=== PATIENT | female | born 1945 | race Caucasian/White ===

== ENCOUNTER 2023-04-30 23:21 | Inpatient (IN) | payer MEDICARE ==
[~2023-04-30] VITALS: Ht 162.6 cm; Wt 95.4 kg
[~2023-04-30 23:21] MED LIST: ATOR20TA PO; DILT120T20 PO; FLUT1BLS4 PO; GABA300C PO; INSU100V49 SQ; INSU100V9 SQ; LISI2.5T14 PO; NORT50CA5 PO; RIVA20TA PO
[2023-05-01] VITALS (10 sets, daily range): PULSE 100–119; RESP 15–20; O2SAT 90–93
[2023-05-01 00:45] LABS: D-DIMER 0.73 MG/L FEU (0-0.50)
[2023-05-01 00:49] LABS: ALANINE AMINOTRANSFERASE 23 U/L (12-78); ALBUMIN 2.6 G/DL (3.4-5.0); ALBUMIN/GLOBULIN RATIO 0.7 (1.1-1.5); ALKALINE PHOSPHATASE 61 IU/L (46-116); ANION GAP 11 (8-16); ASPARTATE AMINO TRANSFERASE 13 U/L (10-37); BILIRUBIN,TOTAL 0.9 MG/DL (0.1-1.0); BLOOD UREA NITROGEN 74 MG/DL (7-18); BUN/CREATININE RATIO 24.7 (10.0-20.0); CALCIUM 8.4 MG/DL (8.5-10.1); CHLORIDE 95 MMOL/L (99-107); CREATININE 2.99 MG/DL (0.40-0.90); GLUCOSE 324 MG/DL (70-104); POTASSIUM 4.3 MMOL/L (3.5-5.1); SODIUM 130 MMOL/L (135-145); TOTAL CARBON DIOXIDE 23.7 MMOL/L (24-32); TOTAL PROTEIN 6.5 G/DL (6.4-8.2); eGFR 15 ML/MIN
[2023-05-01 01:01] LABS: BASOPHILS # (AUTO) 0.1 X10'3 (0-0.2); BASOPHILS % (AUTO) 0.4 % (0-1); EOSINOPHILS % (AUTO) 0.2 % (0-6); HEMATOCRIT 37.6 % (35.0-45.0); HEMOGLOBIN 12.5 g/dl (12.0-16.0); LYMPHOCYTES # (AUTO) 2.5 X10'3 (1.1-4.8); LYMPHOCYTES % (AUTO) 10.9 % (21-51); MEAN CORPUSCULAR HEMOGLOBIN 30.1 PG (27.0-31.0); MEAN CORPUSCULAR HGB CONC 33.2 g/dL (33.0-36.5); MEAN CORPUSCULAR VOLUME 90.7 FL (78-98); MEAN PLATELET VOLUME 8.8 FL (7.4-10.4); MONOCYTES # (AUTO) 0.8 X10'3 (0-0.9); MONOCYTES % (AUTO) 3.5 % (2-12); NEUTROPHILS # (AUTO) 19.3 X10'3 (1.8-7.7); PLATELET COUNT 279 X10'3 (140-440); RED BLOOD COUNT 4.15 X10'6 (4.20-5.60); WHITE BLOOD COUNT 22.7 X10'3 (4.5-11.0)
--- NOTE | 2023-05-01 01:29 | NUR ---
unable to confirm placement of PICC line for use. PIV inserted into left AC.
[2023-05-01] MEDS ORDERED: normal saline 1000ML IV soln IVB ONE ×2 (03:10→03:55)
[2023-05-01] MEDS ORDERED: CefTRIAXone/D5W-Rocephin 1gm 50 ML IV ONE (03:55)
[2023-05-01] MEDS ORDERED: azithromycin/NS 500mg/250ml 250 ML IV ONE (03:55)
[2023-05-01] MEDS ORDERED: acetaminophen 650mg rectal suppository RC PRN (04:50)
[2023-05-01] MEDS ORDERED: diphenhydrAMINE 50 mg/ml inj IV PRN (04:50)
[2023-05-01] MEDS ORDERED: mag hydrox/Alum hydrox/simeth 30ml oral suspension PO PRN (04:50)
[2023-05-01] MEDS ORDERED: morphine 2 MG/ML inj. syringe IV PRN (04:50)
[2023-05-01] MEDS ORDERED: diphenhydrAMINE 25mg capsule PO PRN (04:50)
[2023-05-01] MEDS ORDERED: ondansetron/PF 4mg/2ml inj IV PRN (04:50)
[2023-05-01] MEDS ORDERED: ondansetron 4mg rapidly disintigrating tab PO PRN (04:50)
[2023-05-01] MEDS: normal saline 1000ml 1,000 ML IV SCH ×2 (04:50→17:52)
[2023-05-01] MEDS ORDERED: magnesium hydroxide 30ml (MOM) UD suspension PO PRN (04:50)
[2023-05-01] MEDS ORDERED: acetaminophen 325mg tablet PO PRN ×2 (04:50)
[2023-05-01] MEDS ORDERED: bisacodyl 10mg suppository rectal RC PRN (04:50)
[2023-05-01] MEDS ORDERED: DEXTROSE 15 GM of carb/4 tabs (each vial/BOTTLE has 4 tablets) PO PRN ×2 (04:55)
[2023-05-01] MEDS ORDERED: albumin (human) 25% 100ml IV 100 ML in dextrose 5% water 500ml 400 ML IV ONE (04:55)
[2023-05-01] MEDS ORDERED: MESSAGE TO PHARMACY PO ONE (04:55)
[2023-05-01] MEDS ORDERED: dextrose 50%-water 50ml dispensing syringe IV PRN ×2 (04:55)
[2023-05-01] MEDS ORDERED: glucagon, human recombinant 1mg kit SUBCUT PRN (04:55)
[2023-05-01 05:16] LABS: ABG BASE EXCESS -4.9 mmol/L (-2.0-2.0); ABG HCO3 19.9 mmol/L (22.0-26.0); ABG PCO2 (T) 35.7 mmHg (32.0-45.0); ABG PO2 (T) 63.6 mmHg (75.0-100.0); ALLEN'S TEST Modified; FCOHb 0.4 % (0.0-3.9); FLOW 6 L/min; FMetHb 0.3 % (0.0-1.5); FO2Hb 89.4 % (94-97); PATIENT TEMPERATURE 36.8; TOTAL HEMOGLOBIN 12.7 G/dl (12.0-16.0)
[2023-05-01 05:45] LABS: MAGNESIUM 1.6 MG/DL (1.5-2.4); PHOSPHORUS 6.1 MG/DL (2.3-4.5)
[2023-05-01] MEDS ORDERED: morphine 2 MG/ML inj. syringe IV ONE (05:50)
[2023-05-01] MEDS ORDERED: LORazepam 2 mg/ml vial IV ONE (05:50)
[2023-05-01 06:28] LABS: APTT 46 SECONDS (22-32); D-DIMER 0.54 MG/L FEU (0-0.50)
--- NOTE | 2023-05-01 07:18 | NUR ---
RN CALLED PHARM AND REQ ALBUMIN. PER PHARMACIST RN/TECH WILL NEED TO BOOM CAT OPERATOR FROM PHARM.
[2023-05-01] MEDS ORDERED: albumin (human) 25% 100ml IV 500 ML IV ONE (07:25)
[2023-05-01] MEDS ORDERED: vancomycin/NS 1 GM ADD-VANTAGE 250 ML IV SCH (08:00)
[2023-05-01] MEDS ORDERED: vancomycin/NS 1 GM ADD-VANTAGE 250 ML IV PRN (08:25)
[2023-05-01] MEDS ORDERED: vancomycin/NS 1 GM ADD-VANTAGE 250 ML IV ONE (08:26)
[2023-05-01] MEDS: pantoprazole 40mg Tablet.DR PO SCH (08:27)
[2023-05-01] MEDS: methylPREDNISolone sod succ 125mg/2ml vial IV SCH ×2 (08:27→12:04)
[2023-05-01] MEDS: HYDROcodone/acetaminophen 5mg/325mg tablet PO PRN (08:27)
--- NOTE | 2023-05-01 08:57 | NUR ---
RN PAGED RT TO GIVE RT TX JOHN.
[2023-05-01] MEDS ORDERED: NYSPWD TP (08:58)
[2023-05-01] MEDS ORDERED: FURO-149 PO (08:58)
[2023-05-01] MEDS ORDERED: HYDR-3964 PO (08:58)
[2023-05-01] MEDS ORDERED: CARB15DR58 RIGHTEYE (08:58)
[2023-05-01] MEDS ORDERED: ALBU2.5V10 INH (08:58)
[2023-05-01] MEDS: ipratropium/albuterol 3ml nebule NEB PRN ×3 (09:12→23:44)
--- NOTE | 2023-05-01 09:16 | NUR ---
RN NOTIFIED DR MILNER PT HR IN 120'S AFIB WITH RVR. PT TAKES DILTIAZEM 120MG ER DAILY. PER DR GUAN RN MAY ORD 30MG DILTIAZEM PO Q6HRS AND ADMIN. ALSO FOR RN TO CALL HER BACK IF PT HR DOES NOT IMPROVE.
--- NOTE | 2023-05-01 09:21 | NUR ---
RN ATTEMPTING 2ND IV NOW. BG BEING CHECKED BY HVAC MANAGER/STUDENT.
--- NOTE | 2023-05-01 09:25 | NUR ---
DILTIAZEM WAS THROWN IN TRASH BY STAFF IN ERROR. RN WILL OBTAIN NEW DILTIAZEM TABLET FROM [employer].
[2023-05-01] MEDS: diltiazem 30mg tablet PO SCH ×2 (09:26→15:35)
[2023-05-01] MEDS: docusate sod 100mg capsule PO SCH (09:41)
[2023-05-01 09:48] LABS: CLARITY,URINE SLIGHTLY CLOUDY (Clear); COLOR,URINE YELLOW (Yellow); GLUCOSE, URINE NEGATIVE (Neg); KETONES,URINE TRACE mg/dl (Neg); LEUKOCYTE ESTERASE ,URINE NEGATIVE (Neg); NITRITES, URINE NEGATIVE (Neg); OCCULT BLOOD,URINE NEGATIVE (Neg); PROTEIN,URINE NEGATIVE (Neg); UROBILINOGEN,URINE 0.2 E.U/dL (0.2-1.0)
[2023-05-01 09:50] LABS: UA COLLECTION TYPE FOLEY CATH
[2023-05-01 09:58] LABS: SQUAMOUS EPITHELIAL CELL,UR MANY /LPF (FEW)
[2023-05-01 09:59] LABS: MUCUS STRANDS FEW /LPF (Neg)
[2023-05-01 10:03] LABS: CAL OXALATE CRYSTALS FEW /HPF (NEGATIVE)
[2023-05-01 10:04] LABS: BACTERIA,URINE FEW /HPF (Neg); RBC,URINE 0-2 /HPF (0-2); WBC,URINE 0-4 /HPF (0-4)
--- NOTE | 2023-05-01 10:08 | NUR ---
PT HAS PICC TO RUE. NO NEED FOR RN TO PLACE 2ND IV.
--- NOTE | 2023-05-01 11:53 | NUR ---
RN DID NOT ADMIN INSULIN WITH AM BG CK D/T PT WANTED TO EAT YOGURT AND CRACKERS. PT ATE YOGURT VERY SLOWLY AND DID NOT EAT CRACKERS. PT JUST FINISHED YOGURT SO NUTRITIONAL DOSE COULD NOT BE DETERMINED UNTIL THIS TIME. LUNCH WILL ARRIVE SOON AND RN WILL ADMIN INSULIN AT THAT TIME.
--- NOTE | 2023-05-01 11:56 | NUR ---
PT C/O INCREASED SOB AND REQ ANOTHER RT TX. RT TX ORD Q 6HRS. PT ALSO ASKING FOR MORE MORPHINE OR NORCO FOR CP AND BOTH ARE NOT DUE FOR 1 HR IF GIVEN 30 MINS EARLY. RN PAGED DR GUAN TO NOTIFY HER AND REQ ORDS.
--- NOTE | 2023-05-01 14:02 | NUR ---
RN REQ HUMALOG AND LANTUS FROM PHARM. PER PHARM RN WILL NEED TO PRODUCTION OR PLANT ENGINEER IN 10 MINS.
[2023-05-01] MEDS: insulin Lispro (HumaLOG) vial - multi-dose SQ SCH ×2 (14:30→19:34)
--- NOTE | 2023-05-01 14:53 | NUR ---
RT PAGED SO HIGH FLOW NASAL CANULA CAN BE PROVIDED AND RT TX. RN WILL ALSO REQ HUMIDIFIER.
--- NOTE | 2023-05-01 15:04 | NUR ---
RT AT PT BEDSIDE. PER RT THEY WILL PUT THE PT ON A SIMPLE MASK BUT THEY DO NOT WANT TO PROVIDE A HFNC/HUMIDIFIER D/T WHEN THEY BRING IT TO THE ED THE SUPPLIES ARE LOST. RN REQ HFNC D/T PT WILL NOT BE ABLE TO EAT WITH A SIMPLE MASK ON AND D/T PT ACUITY IN THE ED RN CAN NOT OBSERVE THE PT EATING WITH A MASK. INTERACTIVE MEDIA MARKETING STRATEGIST [employer] NOTIFIED AND CAME TO BEDSIDE TO CONFIRM WITH RN. PER RT THEY WILL PROVIDE A HFNC BUT THEY WILL NOT PROVIDE A HUMIDIFIER. RN WILL CONT TO MONITOR PT FOR COMFORT WITH HFNC.
[2023-05-01] MEDS: CefTRIAXone/D5W-Rocephin 1gm 50 ML IV SCH (17:52)
--- NOTE | 2023-05-01 19:10 | NUR ---
. ENAMORADO IN PLACE TO GRAVITY, REC'D PT IN POC IN NAD IN HOSPITAL BED, PENDING ADMIT. PT C/O HFNC TOO HIGH AT 10L AND BOTHERING HER; NOTICED NO HUMIDIFIER IN PLACE, RT PAGED, HUMIDIFIER PLACED, AND FLOW CHANGED TO 8L
--- NOTE | 2023-05-01 19:17 | NUR ---
PT HAS WOUND TO LEFT UPPER ABD. WOUND CARE CONSULT ORD AND PIC PLACED IN CHART.
[2023-05-01] MEDS ORDERED: temazepam 15mg capsule PO PRN (21:00)
[2023-05-01] MEDS: insulin glargine (Lantus) pen - multi-dose SQ SCH (21:00)
[2023-05-02] VITALS (9 sets, daily range): BP systolic 142–163; BP diastolic 66–77; PULSE 63–102; RESP 16–20; TEMP 97.2–98.6; O2SAT 89–92
[2023-05-02] MEDS: normal saline 1000ml 1,000 ML IV SCH ×3 (00:50→18:01)
[2023-05-02] MEDS: docusate sod 100mg capsule PO SCH ×3 (00:52→20:19)
[2023-05-02] MEDS: diltiazem 30mg tablet PO SCH ×5 (00:52→20:19)
[2023-05-02] MEDS: methylPREDNISolone sod succ 125mg/2ml vial IV SCH ×4 (01:03→20:19)
[2023-05-02] MEDS ORDERED: VANCOMYCIN LEVEL IV SCH (03:00)
--- NOTE | 2023-05-02 08:00 | NUR ---
Patient in room PCU 3020. [facility] and had the opportunity to ask questions and assume patient care.
[2023-05-02 08:38] LABS: BASOPHILS # (AUTO) 0.1 X10'3 (0-0.2); BASOPHILS % (AUTO) 0.3 % (0-1); EOSINOPHILS % (AUTO) 0 % (0-6); HEMATOCRIT 30.1 % (35.0-45.0); HEMOGLOBIN 9.7 g/dl (12.0-16.0); LYMPHOCYTES # (AUTO) 0.3 X10'3 (1.1-4.8); LYMPHOCYTES % (AUTO) 0.9 % (21-51); MEAN CORPUSCULAR HGB CONC 32.4 g/dL (33.0-36.5); MEAN CORPUSCULAR VOLUME 92.6 FL (78-98); MONOCYTES # (AUTO) 0.4 X10'3 (0-0.9); MONOCYTES % (AUTO) 1.2 % (2-12); NEUTROPHILS # (AUTO) 31.6 X10'3 (1.8-7.7); NEUTROPHILS % (AUTO) 97.6 % (42-75); PLATELET COUNT 219 X10'3 (140-440); RED BLOOD COUNT 3.25 X10'6 (4.20-5.60); RED CELL DISTRIBUTION WIDTH 14.3 % (11.5-14.5)
[2023-05-02 08:45] LABS: WHITE BLOOD COUNT 32.4 X10'3 (4.5-11.0)
[2023-05-02] MEDS: pantoprazole 40mg Tablet.DR PO SCH (08:49)
[2023-05-02] MEDS: CefTRIAXone/D5W-Rocephin 1gm 50 ML IV SCH (08:50)
[2023-05-02 08:54] LABS: ALANINE AMINOTRANSFERASE 15 U/L (12-78); ALBUMIN 2.1 G/DL (3.4-5.0); ALBUMIN/GLOBULIN RATIO 0.6 (1.1-1.5); ALKALINE PHOSPHATASE 59 IU/L (46-116); ANION GAP 11 (8-16); ASPARTATE AMINO TRANSFERASE 8 U/L (10-37); BILIRUBIN,TOTAL 0.4 MG/DL (0.1-1.0); BLOOD UREA NITROGEN 64 MG/DL (7-18); BUN/CREATININE RATIO 26.1 (10.0-20.0); CALCIUM 7.9 MG/DL (8.5-10.1); CHLORIDE 103 MMOL/L (99-107); CREATININE 2.45 MG/DL (0.40-0.90); GLUCOSE 301 MG/DL (70-104); POTASSIUM 4.4 MMOL/L (3.5-5.1); SODIUM 136 MMOL/L (135-145); TOTAL CARBON DIOXIDE 22.1 MMOL/L (24-32); TOTAL PROTEIN 5.7 G/DL (6.4-8.2); VANCOMYCIN,RANDOM 23.6 UG/ML; eGFR 19 ML/MIN
[2023-05-02 09:11] LABS: HYPERSEGMENTED NEUTROPHILS 1+; TOTAL CELLS COUNTED 100
[2023-05-02 09:12] LABS: PLATELET ESTIMATE NORMAL
[2023-05-02 09:13] LABS: BURR CELLS 1+; TARGET CELLS FEW
[2023-05-02] MEDS: insulin Lispro (HumaLOG) vial - multi-dose SQ SCH ×4 (09:51→21:18)
[2023-05-02] MEDS: cefepime 2g/NS 100ml ADVANTAGE 100 ML IV SCH (13:10)
--- NOTE | 2023-05-02 14:15 | NUR ---
PRESSURE ULCER EDUCATION: DEFINITION: A pressure ulcer is an area of skin that breaks down when you stay in one position too long. The constant pressure against the skin reduces the blood flow to that area and the affected tissue dies. CAUSES: "Being bedridden or in a wheelchair "Fragile skin "Having a chronic condition, such as diabetes or vascular disease "Inability to move certain parts of your body without assistance "Older age "Incontinence of urine or stool SYMPTOMS: "A reddened area that DOES NOT turn white when pressed on - this can be the beginning of a pressure ulcer "A blister, deep sore or a crater - these can be advanced pressure ulcers FIRST AID: "Relieve the pressure on this area "Keep the area clean and dry "Call your primary doctor if you see any of the above symptoms "DO NOT massage the area "DO NOT use a donut shaped or ring shaped pillow- these actually interfere with the blood flow and cause complications PREVENTION: "Check for pressure ulcers everyday "Change position at least every two hours to relieve pressure "Use items that help relieve pressure- pillows, sheepskin, foam padding, and powders. "Keep skin clean and dry "Eat healthy well balanced meals "Exercise daily IF YOU SEE ANY OF THESE SYMPTOMS WHILE IN THE HOSPITAL - TELL YOUR NURSE IMMEDIATELY. IF YOU SEE ANY OF THESE SYMPTOMS WHILE AT HOME OR HAVE ANY QUESTIONS OR CONCERNS ABOUT PRESSURE ULCERS - CALL YOUR PRIMARY DOCTOR IMMEDIATELY. Addendum: 05/02/23 at 1415 by Kayley Epps LVN Amended: Links added.
--- NOTE | 2023-05-02 18:09 | NUR ---
Problems reprioritized. Patient report given, questions answered & plan of care reviewed with Rio PÉREZ.
[2023-05-02] MEDS: heparin, porcine 5000 units/ml vial SQ SCH (20:19)
[2023-05-02] MEDS: insulin glargine (Lantus) pen - multi-dose SQ SCH (21:19)
[2023-05-02] MEDS: HYDROcodone/acetaminophen 5mg/325mg tablet PO PRN (22:36)
[2023-05-03] VITALS (14 sets, daily range): BP systolic 148–185; BP diastolic 52–87; PULSE 70–112; RESP 14–33; TEMP 97.8–98.8; O2SAT 90–95
[2023-05-03] MEDS: diltiazem 30mg tablet PO SCH ×4 (02:05→19:12)
[2023-05-03] MEDS ORDERED: VANCOMYCIN LEVEL IV SCH (03:00)
[2023-05-03] MEDS: normal saline 1000ml 1,000 ML IV SCH (03:19)
[2023-05-03 04:47] LABS: BASOPHILS % (AUTO) 0.1 % (0-1); EOSINOPHILS % (AUTO) 0 % (0-6); HEMATOCRIT 29.6 % (35.0-45.0); HEMOGLOBIN 9.5 g/dl (12.0-16.0); LYMPHOCYTES # (AUTO) 0.4 X10'3 (1.1-4.8); LYMPHOCYTES % (AUTO) 1.5 % (21-51); MEAN CORPUSCULAR HEMOGLOBIN 29.9 PG (27.0-31.0); MEAN CORPUSCULAR HGB CONC 32.3 g/dL (33.0-36.5); MEAN CORPUSCULAR VOLUME 92.7 FL (78-98); MEAN PLATELET VOLUME 9.1 FL (7.4-10.4); MONOCYTES # (AUTO) 0.4 X10'3 (0-0.9); MONOCYTES % (AUTO) 1.4 % (2-12); NEUTROPHILS # (AUTO) 28.2 X10'3 (1.8-7.7); PLATELET COUNT 236 X10'3 (140-440); RED BLOOD COUNT 3.19 X10'6 (4.20-5.60); RED CELL DISTRIBUTION WIDTH 14.8 % (11.5-14.5)
[2023-05-03 04:52] LABS: WHITE BLOOD COUNT 29.1 X10'3 (4.5-11.0)
[2023-05-03 05:04] LABS: ALANINE AMINOTRANSFERASE 15 U/L (12-78); ALBUMIN/GLOBULIN RATIO 0.5 (1.1-1.5); ALKALINE PHOSPHATASE 55 IU/L (46-116); ANION GAP 12 (8-16); ASPARTATE AMINO TRANSFERASE 9 U/L (10-37); BILIRUBIN,TOTAL 0.4 MG/DL (0.1-1.0); BLOOD UREA NITROGEN 55 MG/DL (7-18); BUN/CREATININE RATIO 26.1 (10.0-20.0); CALCIUM 8.5 MG/DL (8.5-10.1); CHLORIDE 107 MMOL/L (99-107); CREATININE 2.11 MG/DL (0.40-0.90); GLUCOSE 190 MG/DL (70-104); POTASSIUM 4.5 MMOL/L (3.5-5.1); SODIUM 141 MMOL/L (135-145); TOTAL CARBON DIOXIDE 21.7 MMOL/L (24-32); TOTAL PROTEIN 5.7 G/DL (6.4-8.2); VANCOMYCIN,RANDOM 16.1 UG/ML; eGFR 23 ML/MIN
--- NOTE | 2023-05-03 06:46 | NUR ---
Problems reprioritized. Patient report given, questions answered & plan of care reviewed with MAEVE. Addendum: 05/03/23 at 0646 by Papi Mcdowell RN Amended: Links added.
--- NOTE | 2023-05-03 07:12 | NUR ---
Patient in room PCU 3020. I have received report from Rio PÉREZ and had the opportunity to ask questions and assume patient care.
[2023-05-03] MEDS: docusate sod 100mg capsule PO SCH ×2 (09:17→19:12)
[2023-05-03] MEDS: pantoprazole 40mg Tablet.DR PO SCH (09:18)
[2023-05-03] MEDS: methylPREDNISolone sod succ 125mg/2ml vial IV SCH ×3 (09:19→21:16)
[2023-05-03] MEDS: cefepime 2g/NS 100ml ADVANTAGE 100 ML IV SCH (09:20)
[2023-05-03] MEDS: heparin, porcine 5000 units/ml vial SQ SCH ×2 (09:20→19:12)
[2023-05-03] MEDS: insulin Lispro (HumaLOG) vial - multi-dose SQ SCH ×3 (09:36→19:15)
--- NOTE | 2023-05-03 17:29 | NUR ---
PAGER ID: [phone] MESSAGE: [phone], Thierry Pace. Pt says she has dry eye and is asking for eye drops. Can I order please. [facility] [id number]
--- NOTE | 2023-05-03 18:42 | NUR ---
Problems reprioritized. Patient report given, questions answered & plan of care reviewed with Willa PÉREZ, patient stable at transfer of care.
[2023-05-03] MEDS: insulin glargine (Lantus) pen - multi-dose SQ SCH (21:13)
[2023-05-03] MEDS: HYDROcodone/acetaminophen 5mg/325mg tablet PO PRN (21:14)
[2023-05-03] MEDS: polyvinyl alcohol ophthalmic drops 15ml bottle EACHEYE PRN (21:15)
[2023-05-04] VITALS (7 sets, daily range): BP systolic 177–188; BP diastolic 73–97; PULSE 92–111; RESP 14–20; TEMP 97.7; O2SAT 90–95
[2023-05-04] MEDS: diltiazem 30mg tablet PO SCH ×3 (01:55→13:33)
[2023-05-04 06:20] LABS: BASOPHILS % (AUTO) 0.1 % (0-1); EOSINOPHILS % (AUTO) 0 % (0-6); HEMATOCRIT 29.9 % (35.0-45.0); HEMOGLOBIN 9.9 g/dl (12.0-16.0); LYMPHOCYTES # (AUTO) 0.4 X10'3 (1.1-4.8); LYMPHOCYTES % (AUTO) 2.3 % (21-51); MEAN CORPUSCULAR HEMOGLOBIN 30.4 PG (27.0-31.0); MEAN CORPUSCULAR VOLUME 92.1 FL (78-98); MEAN PLATELET VOLUME 8.7 FL (7.4-10.4); MONOCYTES # (AUTO) 0.3 X10'3 (0-0.9); MONOCYTES % (AUTO) 1.7 % (2-12); NEUTROPHILS # (AUTO) 15.8 X10'3 (1.8-7.7); NEUTROPHILS % (AUTO) 95.9 % (42-75); PLATELET COUNT 268 X10'3 (140-440); RED BLOOD COUNT 3.25 X10'6 (4.20-5.60); RED CELL DISTRIBUTION WIDTH 14.6 % (11.5-14.5); WHITE BLOOD COUNT 16.5 X10'3 (4.5-11.0)
[2023-05-04 06:22] LABS: ALANINE AMINOTRANSFERASE 19 U/L (12-78); ALBUMIN/GLOBULIN RATIO 0.5 (1.1-1.5); ALKALINE PHOSPHATASE 58 IU/L (46-116); ANION GAP 8 (8-16); ASPARTATE AMINO TRANSFERASE 11 U/L (10-37); BILIRUBIN,TOTAL 0.5 MG/DL (0.1-1.0); BLOOD UREA NITROGEN 50 MG/DL (7-18); BUN/CREATININE RATIO 30.7 (10.0-20.0); CALCIUM 8.6 MG/DL (8.5-10.1); CHLORIDE 108 MMOL/L (99-107); CREATININE 1.63 MG/DL (0.40-0.90); GLUCOSE 163 MG/DL (70-104); POTASSIUM 4.2 MMOL/L (3.5-5.1); SODIUM 141 MMOL/L (135-145); TOTAL CARBON DIOXIDE 24.8 MMOL/L (24-32); TOTAL PROTEIN 5.9 G/DL (6.4-8.2); eGFR 31 ML/MIN
--- NOTE | 2023-05-04 06:40 | NUR ---
Problems reprioritized. Patient report given, questions answered & plan of care reviewed with Deborah PÉREZ.
--- NOTE | 2023-05-04 06:45 | NUR ---
Patient in room PCU 3020. I have received report from Willa and had the opportunity to ask questions and assume patient care.
[2023-05-04] MEDS ORDERED: vancomycin inj 500 MG in normal saline 100ml IV soln 100 ML IV SCH (08:00)
--- NOTE | 2023-05-04 08:38 | NUR ---
Per EMR pt with T2DM with most recent A1c 9.6% 04/24. Pt was seen at previous admit 04/25 for written and verbal DM education. RD contact information provided at that time. No further education warranted though will remain available should pt have any questions. Addendum: 05/04/23 at [address] Amended: Links added.
[2023-05-04] MEDS: pantoprazole 40mg Tablet.DR PO SCH (08:55)
[2023-05-04] MEDS: cefepime 2g/NS 100ml ADVANTAGE 100 ML IV SCH (08:56)
[2023-05-04] MEDS: methylPREDNISolone sod succ 125mg/2ml vial IV SCH ×2 (08:58→13:34)
[2023-05-04] MEDS: heparin, porcine 5000 units/ml vial SQ SCH (08:59)
[2023-05-04] MEDS: docusate sod 100mg capsule PO SCH (08:59)
[2023-05-04] MEDS: polyvinyl alcohol ophthalmic drops 15ml bottle EACHEYE PRN (09:20)
[2023-05-04] MEDS: insulin Lispro (HumaLOG) vial - multi-dose SQ SCH (13:30)
--- NOTE | 2023-05-04 16:19 | NUR ---
Called report to [facility] at 14:25, spoke with Alivia. Patient is alert, oriented and ready to discharge to [facility]. [facility] personnel picked up patient. This bond underwriter assisted with packing up patient. Patient's belongings were sent with patient.
[2023-05-05] MEDS ORDERED: VANCOMYCIN 750MG IV in NS 250 ML IV SCH (08:00)
[2023-05-08] MEDS ORDERED: VANCOMYCIN LEVEL IV ONE (07:30)
== END 2023-05-04 15:11 | DRG 871 ==
LOC: ER 23:22 → ED HOLD 05-01 04:51 → EDBEDREQ 05-02 05:30 → PCU 3S 05-02 07:06
PROVIDERS: ADMIT Family Medicine; ATTEND Internal Medicine
PROC: 5A0935A Assistance with Respiratory Ventilation, Less than 24 Consecutive Hours, High Flow/Velocity Cannula (ICD-10-PCS; principal; 2023-05-02)
PROC: 5A0935A Assistance with Respiratory Ventilation, Less than 24 Consecutive Hours, High Flow/Velocity Cannula (ICD-10-PCS; 2023-05-02)
DX: A41.02 Sepsis due to Methicillin resistant Staphylococcus aureus (principal); E43 Unspecified severe protein-calorie malnutrition; I50.23 Acute on chronic systolic (congestive) heart failure; J18.9 Pneumonia, unspecified organism; J96.21 Acute and chronic respiratory failure with hypoxia; N17.9 Acute kidney failure, unspecified; J44.1 Chronic obstructive pulmonary disease with (acute) exacerbation; J44.0 Chronic obstructive pulmonary disease with (acute) lower respiratory infection; E87.1 Hypo-osmolality and hyponatremia; I27.81 Cor pulmonale (chronic); I48.91 Unspecified atrial fibrillation; I95.9 Hypotension, unspecified; E11.22 Type 2 diabetes mellitus with diabetic chronic kidney disease; N18.30 Chronic kidney disease, stage 3 unspecified; Z79.899 Other long term (current) drug therapy; Z79.4 Long term (current) use of insulin; Z79.01 Long term (current) use of anticoagulants; Z85.528 Personal history of other malignant neoplasm of kidney; Z88.1 Allergy status to other antibiotic agents; Z90.5 Acquired absence of kidney; Z89.612 Acquired absence of left leg above knee; Z99.3 Dependence on wheelchair; Z68.36 Body mass index [BMI] 36.0-36.9, adult
CPT/HCPCS: 36415; 36600; 71045; 80053; 80202; 81001; 82803; 82948; 83605; 83735; 83880; 84100; 84145; 84484; 85007; 85018; 85025; 85379; 85610; 85730; 87040; 87081; 93005; 94640; 94664; 94668; 94760; 97161; 97530; 97535; 99285; A4620; A4649; A6449; G0378; J0692; J0696; J1644; J1815; J2270; J2930; J3370; J3490; J7030; P9047